=== PATIENT | male | born 1985 | race Two or more races ===

== ENCOUNTER 2020-04-03 18:12 | Inpatient (IN) | payer OTHER ==
[~2020-04-03] VITALS: Ht 172.7 cm; Wt 100.3 kg
--- NOTE | 2020-04-03 18:41 | NUR ---
FIRST CONTACT WITH PT. PT STATED "IT HAS TO BE MY PANCREATITIS. IT STARTED YESTERDAY AFTER SOMETHING I ATE. I TOOK 800 MG MOTRIN AND THAT DIDN'T WORK. I TOOK TYLENOL 650 MG AND THAT DIDN'T WORK AT ALL". LUQ ABD PAIN. PT'S AOX4. RESPS EVEN AND UNLABORED. DENIES ANY BODYACHES/CILLS/SOB/COUGH. BP/SPO2 MONITORS IN PLACE. CALL LIGHT WITHIN REACH. PA AT BEDSIDE TO EVALUATE AT THIS TIME.
[2020-04-03] MEDS ORDERED: MORPHINE SULFATE 4 MG/ML, 1ML ONE ×2 (18:50→20:54)
[2020-04-03] MEDS ORDERED: ONDANSETRON 2MG/ML, 2ML ONE (18:50)
--- NOTE | 2020-04-03 18:54 | NUR ---
JACKSON TYLER AT BEDSIDE TO JOSE J CANAS AT THIS TIME.
--- NOTE | 2020-04-03 18:56 | NUR ---
COVID SWAB PER SAVANNA ALCARAZ
--- NOTE | 2020-04-03 18:58 | NUR ---
DROPLET PLUS PRECAUTION CART PLACED.
[2020-04-03] MEDS ORDERED: ONDANSETRON 2MG/ML, 2ML IVPush ONE (19:00)
[2020-04-03] MEDS ORDERED: SODIUM CHLORIDE FLUSH 10ML SYR IVF ONE (19:00)
[2020-04-03] MEDS: MORPHINE SULFATE 4 MG/ML, 1ML IVPush PRN ×2 (19:04→21:03)
--- NOTE | 2020-04-03 19:04 | NUR ---
ZOFRAN AND MORPHINE GIVEN PER EMAR.
--- NOTE | 2020-04-03 19:04 | NUR ---
U/S NOW AT BS
--- NOTE | 2020-04-03 19:29 | NUR ---
PT REPORTS SLIGHT IMPROVEMENT IN PAIN. URINAL PROVIDED TO PT; PT AWARE OF NEED FOR SPECIMEN. SIDE RAILS UP X2, CALL LIGHT W/IN REACH.
--- NOTE | 2020-04-03 19:32 | NUR ---
CRAB FISHER CALLED ED, STATES THEY NEED TO REDRAW CBC AND CMP.
[2020-04-03 20:40] LABS: ALANINE AMINOTRANSFERASE 40 U/L (12-78); ALBUMIN 3.6 g/dL (3.4-5.0); ANION GAP 9 mmol/L (5-15); CALCIUM 9.1 mg/dL (8.5-10.1); CHLORIDE 105 mmol/L (98-107); CREATININE 0.85 mg/dL (0.7-1.3)
[2020-04-03 20:43] LABS: ALKALINE PHOSPHATASE 89 U/L (45-117); BILIRUBIN,TOTAL 0.8 mg/dL (0.2-1.0); TOTAL PROTEIN 8.7 g/dL (6.4-8.2)
--- NOTE | 2020-04-03 20:46 | NUR ---
FORMING MACHINE OPERATOR CALLED, CHEMISTRY SAMPLE WAS GROSSLY HEMOLYZED; RESULTS SLIGHTLY ABNORMAL. NO CRITICAL. WILL NOTIFY ERP.
[2020-04-03] MEDS ORDERED: LACTATED RINGERS 1,000 ML IV SCH ×2 (21:00→22:30)
[2020-04-03] MEDS ORDERED: LACTATED RINGERS 1,000 ML IVBOLUS ONE (21:00)
--- NOTE | 2020-04-03 21:07 | NUR ---
LR RUDOLPH; INFUSING W/O; IV SITE PATENT. MORPHINE 4MG (2ND DOSE) GIVEN.
[2020-04-03 21:14] LABS: MEAN CORPUSCULAR HEMOGLOBIN 28.4 pg (27.5-34.5); MEAN CORPUSCULAR HGB CONC 31.7 g/dL (33.2-36.2); MEAN CORPUSCULAR VOLUME 89.6 fL (81-97); MEAN PLATELET VOLUME 9.4 fL (7.4-10.4); PLATELET COUNT 194 x10^3/uL (130-400); RED BLOOD COUNT 3.77 x10^6/uL (4.38-5.82); RED CELL DISTRIBUTION WIDTH 17.4 % (9.4-14.8)
[2020-04-03 21:20] LABS: BASOPHILS # (AUTO) 0.03 x10^3/uL (0-0.1); BASOPHILS % (AUTO) 0 % (0-1); EOSINOPHILS # (AUTO) 0.03 x10^3/uL (0-0.4); EOSINOPHILS % (AUTO) 0 % (1-7); LYMPHOCYTES # (AUTO) 2.82 x10^3/uL (1-3.4); LYMPHOCYTES % (AUTO) 21 % (22-44); MD SCAN; MONOCYTES # (AUTO) 0.33 x10^3/uL (0.2-0.8); MONOCYTES % (AUTO) 3 % (2-9); NEUTROPHILS # (AUTO) 10.11 x10^3/uL (1.8-6.8); NEUTROPHILS % (AUTO) 76 % (42-75)
[2020-04-03 21:23] LABS: MICROSCOPIC AUTO
[2020-04-03] MEDS ORDERED: HYDROmorphone 1 MG/ML, 1ML INJ ONE ×2 (21:25→23:16)
--- NOTE | 2020-04-03 22:01 | NUR ---
PT REPORT TO [place] Thomson RN. PT CARE TRANSFERRED.
--- NOTE | 2020-04-03 22:11 | NUR ---
report of pt from carlos manuel tucker and assuming care of pt at this time.
[2020-04-03] MEDS ORDERED: CYCLOBENZAPRINE 10 MG TABLET PO PRN (22:30)
[2020-04-03] MEDS ORDERED: hydrALAzine 20 MG/ML, 1ML IVPush PRN (22:30)
[2020-04-03] MEDS ORDERED: ZOLPIDEM 5MG TABLET PO PRN (22:30)
[2020-04-03] MEDS ORDERED: ACETAMINOPHEN 325 MG TABLET PO PRN (22:30)
[2020-04-03] MEDS ORDERED: GUAIFENESIN/DM 200-20MG, 10ML UDC PO PRN (22:30)
[2020-04-03] MEDS ORDERED: DOCUSATE 100 MG CAPSULE PO PRN (22:30)
[2020-04-03] MEDS ORDERED: FAMOTIDINE 20 MG/2 ML IVPush SCH (22:30)
[2020-04-03] MEDS ORDERED: morphine SULFATE 10 MG/ML, 1ML IVPush PRN (22:30)
[2020-04-03] MEDS ORDERED: ONDANSETRON 2MG/ML, 2ML IVPush PRN (22:30)
[2020-04-03] MEDS ORDERED: KETOROLAC 30 MG/1 ML IV PRN (22:30)
[2020-04-03] MEDS ORDERED: FAMOTIDINE 20 MG/2 ML ONE (23:06)
[2020-04-03] MEDS ORDERED: KETOROLAC 30 MG/1 ML ONE (23:16)
[2020-04-03] MEDS: HYDROmorphone 2 MG/ML, 1ML IVPush PRN ×2 (23:20→23:37)
--- NOTE | 2020-04-03 23:33 | NUR ---
MEDICATED PER MAR, PT C/O PAIN 04/09. 0.5MG DILAUDID ADMINISTERED PER TITRATION ORDER.SAFETY FALL PRECAUTIONS IN PLACE.
--- NOTE | 2020-04-04 04:39 | NUR ---
PT MEDICATED PER MAR FOR PAIN. PT VSS AND UPDATED IN EMR AT THIS TIME. CALL LIGHT IS WITHIN REACH OF PT.
[2020-04-04] MEDS: HYDROmorphone 2 MG/ML, 1ML IVPush PRN (04:40)
[2020-04-04 04:42] VITALS: BP 146/79
[2020-04-04 05:35] LABS: BASOPHILS # (AUTO) 0.01 x10^3/uL (0-0.1); BASOPHILS % (AUTO) 0 % (0-1); EOSINOPHILS # (AUTO) 0.05 x10^3/uL (0-0.4); EOSINOPHILS % (AUTO) 1 % (1-7); LYMPHOCYTES # (AUTO) 0.98 x10^3/uL (1-3.4); LYMPHOCYTES % (AUTO) 9 % (22-44); MD NO; MEAN CORPUSCULAR HEMOGLOBIN 31.8 pg (27.5-34.5); MEAN CORPUSCULAR HGB CONC 35.8 g/dL (33.2-36.2); MEAN CORPUSCULAR VOLUME 88.7 fL (81-97); MEAN PLATELET VOLUME 10.6 fL (7.4-10.4); MONOCYTES # (AUTO) 0.61 x10^3/uL (0.2-0.8); MONOCYTES % (AUTO) 5 % (2-9); NEUTROPHILS # (AUTO) 9.49 x10^3/uL (1.8-6.8); NEUTROPHILS % (AUTO) 85 % (42-75); PLATELET COUNT 184 x10^3/uL (130-400); RED BLOOD COUNT 4.35 x10^6/uL (4.38-5.82); RED CELL DISTRIBUTION WIDTH 13.4 % (9.4-14.8)
[2020-04-04 05:44] LABS: ANION GAP 3 mmol/L (5-15); CALCIUM 8.3 mg/dL (8.5-10.1); CHLORIDE 102 mmol/L (98-107); CREATININE 0.72 mg/dL (0.7-1.3); TRANSFERRIN 243 mg/dL (200-360)
[2020-04-04 05:46] LABS: TRIGLYCERIDES 2189 mg/dL (50-200)
[2020-04-04 05:57] LABS: % IRON SATURATION 17 % (20-55); IRON LEVEL 55 mcg/dL (65-175); TOTAL IRON BINDING CAPACITY 320 mcg/dL (250-450)
[2020-04-04] MEDS ORDERED: FENOFIBRATE 54 MG TABLET PO SCH (09:00)
== END 2020-04-04 07:10 | disposition left against medical advice (07) | DRG 642 ==
LOC: ED 21:18 → EDIP 21:42 → 4NW 04-04 05:47
PROVIDERS: ADMIT Internal Medicine; ATTEND Hospitalist
DX: E78.1 Pure hyperglyceridemia (principal); K85.80 Other acute pancreatitis without necrosis or infection; E87.1 Hypo-osmolality and hyponatremia; D64.9 Anemia, unspecified; E66.9 Obesity, unspecified; K76.0 Fatty (change of) liver, not elsewhere classified; Z68.33 Body mass index [BMI] 33.0-33.9, adult; Z20.828 Contact with and (suspected) exposure to other viral communicable diseases
CPT/HCPCS: 36415; J3490; 71045; 76700; 80048; 80053; 81001; 82728; 83540; 83550; 83690; 84466; 84478; 85025; 87635; J1170; J1885; J2405; J2270; J7120